=== PATIENT | female | born 1945 | race Caucasian/White ===

== ENCOUNTER 2017-08-14 06:47 | Day surgery (SDC) | payer OTHER ==
[~2017-08-14 06:47] MED LIST: AMLODIPINE BES2.5 MG PO; CALCIUM PO; COZAAR100 MG PO; FORTAMET500 MG PO; OMEGA 3 1,0001 EACH PO; VIT C-ROSE HIP500 MG PO; ZYRTEC10 MG PO
[2017-08-14] MEDS ORDERED: PERCOCET 5-3251 EACH PO (12:15)
== END 2017-08-14 14:20 | disposition home or self-care (01) ==
LOC: CIR.AMB 06:47
DX: D34 Benign neoplasm of thyroid gland (principal); E04.1 Nontoxic single thyroid nodule; I10 Essential (primary) hypertension; E11.9 Type 2 diabetes mellitus without complications